=== PATIENT | female | born 1965 | race Caucasian/White ===

== ENCOUNTER 2019-08-20 12:53 | Emergency (ER) | payer OTHER ==
[~2019-08-20 12:53] MED LIST: Dexamethasone 20 MG/5 ML VIAL ONE; Lidocaine 1% PF 5 ML VIAL ONE; Ondansetron PF 4 MG/2 ML Vial ONE; PROPOFOL 200 MG/20 ML VIAL ONE; Rocuronium Bromide 10 MG/ML (10ML VIAL) ONE
[2019-08-20] MEDS ORDERED: Ondansetron PF 4 MG/2 ML Vial ONE (13:19)
[2019-08-20 13:49] LABS: #Basophils 0.1 thou/uL (0.0-0.2); #Eosinphils 0.1 thou/uL (0.0-0.7); #Lymphocytes 2.2 thou/uL (1.20-3.40); #Monocytes 0.6 thou/uL (0.11-0.59); #Neutrophils 9.7 thou/uL (1.40-6.50); %Basophils 0.4 % (0.0-1.0); %Eosinophils 0.9 % (0.0-10.0); %Lymphocytes 17.5 % (21.0-51.0); %Monocytes 4.7 % (0.0-10.0); %Neutrophils 76.5 % (42.0-75.0); Hemoglobin 15.8 g/dL (12.0-16.0); Mean Corpuscular HGB CONC 33.6 g/dL (32.0-36.0); Mean Corpuscular Hemoglobin 29.8 pg (27.0-31.0); Mean Corpuscular Volume 88.6 fL (78.0-98.0); Mean Platelet Volume 7.7 fL (7.4-10.4); Platelet Count 335 thou/uL (130-400); RBC Distribution Width 11.2 % (11.5-14.5); Red Blood Cell (RBC) Count 5.31 mill/uL (4.20-5.40); White Blood Cell (WBC) Count 12.6 thou/uL (4.8-10.8)
[2019-08-20 14:07] LABS: ALT (SGPT) 14 U/L (8-55); AST (SGOT) 14 U/L (5-34); Albumin 4.5 g/dL (3.5-5.0); Alkaline Phosphatase 79 U/L (40-110); Anion Gap 20 mmol/L (10-20); BUN (Urea Nitrogen) 22 mg/dL (9.8-20.1); Bilirubin, Total 0.7 mg/dL (0.2-1.2); Calc. Creatinine Clearance 0 mL/min (70-130); Calcium 10.1 mg/dL (7.8-10.44); Carbon Dioxide 21 mmol/L (22-29); Chloride 99 mmol/L (98-107); Estimated GFR-MDRD 39; Globulin 3.2 g/dL (2.4-3.5); Glucose 270 mg/dL (70-105); Potassium 4.6 mmol/L (3.5-5.1); Protein, Total 7.7 g/dL (6.0-8.3); Sodium 135 mmol/L (136-145)
[2019-08-20] MEDS ORDERED: SUGAMMADEX SODIUM 200 MG/2 ML VIAL ONE (18:32)
--- NOTE | 2019-08-20 19:09 | OP ---
DATE OF PROCEDURE: 08/20/2019 PROCEDURES PERFORMED: Esophagogastroduodenoscopy with biopsy to evaluate for eosinophilic esophagitis and removal of foreign body. PREPROCEDURE DIAGNOSES: 1. Oropharyngeal dysphagia with obstruction symptoms of the esophagus for over 24 hours after eating chicken. 2. Inability to handle oral secretions or p.o. intake. ANESTHESIA: General endotracheal anesthesia. POSTPROCEDURE DIAGNOSES: 1. Foreign body of dry meat, likely chicken, removed from the distal esophagus at 35 cm. 2. No overt stricture seen. 3. Poor delineation of Z-line secondary to inflammation. The decision was made not to empirically dilate based on this and 24 hours of food impaction. 4. Furrows in the mid esophagus, consistent with eosinophilic esophagitis. Biopsies obtained and submitted to Pathology. 5. Otherwise normal esophagogastroduodenoscopy. RECOMMENDATIONS: 1. Increase PPI to b.i.d. 2. Await biopsy. 3. Follow up in the office in 1 week for results and discuss treatment options. If there is eosinophilic esophagitis, we will schedule elective dilation at a later date. This will not be able to be performed right now as this is restricted procedures only on emergency basis secondary to COVID-19. DESCRIPTION OF PROCEDURE: After the patient was informed of the risks, benefits, and possible complications of endoscopy including perforation, bleeding, reaction to medication, and aspiration, informed consent was obtained. The patient was brought to endoscopy suite where she was sedated and intubated for airway protection by the foreign body. The endoscope was advanced through the esophagus to the distal esophagus. Some food bolus was encountered. This was chicken look like, it was hard and dry. It was removed with the Gore retrieval net in 2 pieces. The esophagus was then closely evaluated. There was some linear furrows, suggestive of eosinophilic esophagitis in the mid esophagus, biopsied. Good delineation of the Z-line could not be seen secondary to the inflammation. Decision was made not to dilate this area. There may be a slight ring here, but there was not any severe esophageal stenosis or mass. The GE junction was patent with no evidence of achalasia. Retroflexed views in the stomach were normal. The stomach was normal in forward and retroflexed views with the duodenal bulb. The stomach was desufflated. The scope was removed. She was extubated and brought to recovery room in stable condition. Job ID: [id number]
--- NOTE | 2019-08-21 07:49 | CON ---
DATE OF CONSULTATION: 08/20/2019 CONSULTING PHYSICIAN: Dr. Lyons in the emergency room REASON FOR CONSULTATION: Suspected foreign body of the esophagus. HISTORY OF PRESENT ILLNESS: Ms. Raymond is a 54-year-old female, who was eating chicken last night, felt it get stuck in her esophagus. This has had happened on and off for years, maybe 2 to 4 times per year. At this time, it got stuck and she could not wash it down or bring it back up. She tried all last night, but could not and then today, she was scared to come in because of the COVID epidemic, but ultimately came in. They gave her glucagon in the emergency room, which was not effective, and I was called to see if we could remove the foreign body. She denies any hematemesis. She denies any chest pain or throat pain. She does have a feeling of something still stuck, but does not have pain with breathing or moving. They did try some liquids in the emergency room, clear liquids after the glucagon, but she was unable to keep it down and threw it back up. She does take AcipHex for reflux. She denies any recent weight loss. PAST MEDICAL HISTORY: Type 1 diabetes, for which she uses an insulin pump. Her sugars have been running in the 100s. She has a history of peptic ulcer in 2009, for which she saw Dr. Baig, and had actually a Makenzie-Fish tear and has no ulcers or erosions on reviewing that report. Prior medical history also includes hypertension, hypothyroidism, hyperlipidemia. PAST SURGICAL HISTORY: Notable for section, left shoulder surgery. SOCIAL HISTORY: She lives alone at home. Her daughters are with her and waiting outside as no visitor policy present with the COVID epidemic. She does not smoke. She does not use alcohol. REVIEW OF SYSTEMS: Negative for recent fevers, travel outside the country or to high risk COVID hotspots. She has had no cough or shortness of breath or URI symptoms. MEDICATIONS: 1. Lisinopril. 2. Simvastatin. 3. AcipHex. 4. Zofran. 5. Levothyroxine. 6. Medtronic insulin pump. Medicines here; 1. Zofran. 2. Glucagon. PHYSICAL EXAMINATION: VITAL SIGNS: Blood pressure 132/83, pulse 114 to 117, temperature 97. LUNGS: Clear. HEART: Regular rate and rhythm without clicks or murmurs. ABDOMEN: Soft and nontender. LABORATORY DATA: White count 12.2, hemoglobin 15.8, platelet count 335. Sodium 135, potassium 4.6, BUN and creatinine are 22 and 1.4, glucose 270. Liver function tests normal. ASSESSMENT: Foreign body of the esophagus. This has been unable to be remedied with smooth muscle relaxants and IV fluids, although it was not clear that she was ever given IV fluids in the ER. She has had intermittent dysphagia in the past. PLAN: Endoscopic removal of foreign body under general anesthesia. Risks, benefits, and possible complications of the procedure including perforation, bleeding, reaction to medication, aspiration discussed with the patient. Due to the length of time, almost 24 hours now that this foreign body has been present, we will not likely be able to proceed with the dilation. I talked with her about the fact that she will need a dilation at a later date 4 to 6 weeks once COVID restrictions on elective procedures have resolved. I recommended she avoid meats, breads, and chicken until that time and use her PPI b.i.d. Job ID: [id number]
== END 2019-08-20 17:12 | disposition admitted as inpatient to this hospital (09) ==
LOC: ERS 12:53
DX: T18.128A Food in esophagus causing other injury, initial encounter (principal); E10.9 Type 1 diabetes mellitus without complications; I10 Essential (primary) hypertension; E78.5 Hyperlipidemia, unspecified; E03.9 Hypothyroidism, unspecified; K21.9 Gastro-esophageal reflux disease without esophagitis; Z79.899 Other long term (current) drug therapy
CPT/HCPCS: 36415; 36416; 80053; 85025; 88305; 88312; 88313; 96374; 96375; J1100; J1610; J2001; J2405; J2704